=== PATIENT | female | born 1955 | race Caucasian/White ===

== ENCOUNTER 2022-06-24 11:22 | Emergency (ER) | payer SELFPAY ==
[2022-06-24 12:17] VITALS: BP 195/99; PULSE 81; RESP 16; TEMP 36.6; O2SAT 98; BMI 29.9
--- NOTE | 2022-06-24 12:21 | ED_ITS ---
HPI - General Adult General Chief complaint: Extremity Injury, Lower <EZIO Sawant Last Filed: 06/30/22 11:24> Stated complaint: L knee pain <EZIO Sawant Last Filed: 06/30/22 11:24> Time Seen by Provider: 06/24/22 13:33 <EZIO Sawant Last Filed: 06/30/22 11:24> Source: patient <EZIO Horne Last Filed: 06/24/22 17:56> Mode of arrival: ambulatory <EZIO Horne Last Filed: 06/24/22 17:56> Limitations: no limitations <EZIO Horne Last Filed: 06/24/22 17:56> History of Present Illness HPI narrative: 67 yo female with history of HTN and DM presents to the ER for evaluation of a painful and itchy rash to her left leg that started almost a week ago. She reports about 2 months ago she fell and she has had chronic pain in her back and left leg since. She reports new onset of a rash on her left leg that started around her low back and buttock as well as her upper left leg. It is painful and itchy. She denies any fevers, chills, N/V/D or abdominal pain. No rash on any other part of the body. She arrives to the ER hypertensive. She states she did not take her BP meds today, does not know their names. No chest pain, vision changes or headache. <EZIO Horne Last Filed: 06/24/22 17:56> MD complaint: rash, left leg pain <EZIO Horne Last Filed: 06/24/22 17:56> Onset (ago): day(s) <EZIO Horne Last Filed: 06/24/22 17:56> Location: left and lower extremity <EZIO Horne Last Filed: 06/24/22 17:56> Radiation: back <EZIO Horne Last Filed: 06/24/22 17:56> Severity: moderate <EZIO Horne Last Filed: 06/24/22 17:56> Quality: aching and other (itchy) <EZIO Horne Last Filed: 06/24/22 17:56> Pain Consistency: constant <EZIO Horne Last Filed: 06/24/22 17:56> Exacerbating factors: none <EZIO Horne Last Filed: 06/24/22 17:56> Associated symptoms: denies other symptoms <EZIO Horne - Last Filed: 06/24/22 17:56> Treatments prior to arrival: none <EZIO Horne Last Filed: 06/24/22 17:56> Related Data Home medications: Previous Rx's Medication Instructions Recorded amlodipine 10 mg tablet (Norvasc) 10 mg PO DAILY #30 tabs 06/24/22 valacyclovir 1 gram tablet 1,000 mg PO Q8H #20 tabs 06/24/22 <EZIO Sawant Last Filed: 06/30/22 11:24> Allergies/adverse reactions: Allergies Allergy/AdvReac Type Severity Reaction Status Date / Time aspirin [ASPIRIN] Allergy Severe RASH,SWELLI Unverified 02/09/20 18:07 NG captopril Allergy Unknown Verified 07/28/13 00:00 lisinopril Allergy Unknown Verified 07/28/13 00:00 hydromorphone [From DILAUDID] AdvReac Severe AGITATION Unverified 02/09/20 18:07 DAISY inhibitors Allergy Unknown Uncoded 10/29/15 00:00 <EZIO Sawant Last Filed: 06/30/22 11:24> Review of Systems Review of Systems: Yes all other systems are reviewed and are negative <EZIO Horne Last Filed: 06/24/22 17:56> [facility] Social History Social History: Social History Advance Directives: No Advance Directives Information Provided: Yes <EZIO Sawant Last Filed: 06/30/22 11:24> Physical Exam ED Vital Signs: Vital Signs - 24 hr 06/24/22 12:17 06/24/22 13:38 06/24/22 15:07 Temperature 98 F 98.4 F 98.6 F Pulse Rate 81 76 72 Respiratory Rate 16 18 16 Blood Pressure 195/99 H 194/95 H 185/86 H Pulse Oximetry 98 99 99 Oxygen Delivery Method Room Air Room Air Room Air BMI result Body Mass Index 29.9 <EZIO Sawant - Last Filed: 06/30/22 11:24> Vital Signs - 24 hr 06/24/22 12:17 06/24/22 13:38 06/24/22 15:07 Temperature 98 F 98.4 F 98.6 F Pulse Rate 81 76 72 Respiratory Rate 16 18 16 Blood Pressure 195/99 H 194/95 H 185/86 H Pulse Oximetry 98 99 99 Oxygen Delivery Method Room Air Room Air Room Air BMI result Body Mass Index 29.9 <EZIO Horne - Last Filed: 06/24/22 17:56> Appearance: Alert. Oriented X3. No acute distress. HEENT: normal inspection CVS: Normal heart rate and rhythm. Pulses normal. Respiratory: No respiratory distress. Lungs CTAB Skin: Skin warm and dry. Normal skin color. Normal skin turgor. . Extremities: left anterior leg with a vesicular, blister-like rash scattered all along the leg, no surrounding erythema or warmth. normal inspection of the RLE. Neuro: Oriented X 3. No motor deficit. No sensory deficit. <EZIO Horne - Last Filed: 06/24/22 17:56> Course Course Course Narrative: RME: patient presens for left thigh and left lower back buttock pain. Patient pants was pulled down and is positive for shingles on anterior left thigh and small amount on lower aspects of left buttock. patient hypertensive and states she did not take her meds. Due to elevated blood pressure patient will wait and be seen in [facility] to for improvement of blood pressure. <EZIO Sawant - Last Filed: 06/30/22 11:24> Reevaluation(s) Reevaluation #1: rash c/w shingles. given 1st dose of valacyclovir. also given dose of norvasc for BP. she is asymptomatic and has meds at home, unknown the names. she does not know the name of the town she used to live with in [place]. Just moved to the area and does not have a PCP. <EZIO Horne - Last Filed: 06/24/22 17:56> Reevaluation #2: BP improved. Remains symptomatic. Will d/c with norvasc and valacyclovir. She is due to follow with [facility] for further management of her DM and HTN. <EZIO Horne - Last Filed: 06/24/22 17:56> Medications Administered Discontinued Medications Generic Name Dose Route Start Last Admin Trade Name Freq PRN Reason Stop Dose Admin Acetaminophen 975 mg 06/24/22 14:05 06/24/22 14:10 Acetaminophen 325 Mg Tablet PO 06/24/22 14:06 975 mg ONCE ONE Administration Amlodipine Besylate 10 mg 06/24/22 14:05 06/24/22 14:11 Amlodipine Besylate 10 Mg Tablet PO 06/24/22 14:06 10 mg ONCE ONE Administration Protocol Valacyclovir HCl 1,000 mg 06/24/22 14:02 06/24/22 14:11 Valacyclovir Hcl 1,000 Mg Tablet PO 06/24/22 14:03 1,000 mg ONCE ONE Administration <EZIO Sawant - Last Filed: 06/30/22 11:24> Medications Administered Discontinued Medications Generic Name Dose Route Start Last Admin Trade Name Freq PRN Reason Stop Dose Admin Acetaminophen 975 mg 06/24/22 14:05 06/24/22 14:10 Acetaminophen 325 Mg Tablet PO 06/24/22 14:06 975 mg ONCE ONE Administration Amlodipine Besylate 10 mg 06/24/22 14:05 06/24/22 14:11 Amlodipine Besylate 10 Mg Tablet PO 06/24/22 14:06 10 mg ONCE ONE Administration Protocol Valacyclovir HCl 1,000 mg 06/24/22 14:02 06/24/22 14:11 Valacyclovir Hcl 1,000 Mg Tablet PO 06/24/22 14:03 1,000 mg ONCE ONE Administration <EZIO Horne - Last Filed: 06/24/22 17:56> Medical Decision Making Differential Diagnosis Differential Diagnoses: The differential diagnosis associated with the presentation includes <EZIO Horne - Last Filed: 06/24/22 17:56> shingles, dermatitis, allergic reaction, bullous pemphigoid, drug eruption, rheumatologic rash <EZIO Horne - Last Filed: 06/24/22 17:56> Prescription Management I considered prescription management with: Antiviral <EZIO Horne - Last Filed: 06/24/22 17:56> Discharge Plan Discharge Clinical Impression: Shingles, Uncontrolled hypertension <EZIO Sawant - Last Filed: 06/30/22 11:24> Patient Disposition: Home, Self-Care <EZIO Sawant Last Filed: 06/30/22 11:24> Instructions: Shingles (ED), Chronic Hypertension (ED) <EZIO Sawant - Last Filed: 06/30/22 11:24> Additional Instructions: Take the prescribed antiviral medication for your rash. Complete the entire course. She the prescribed amlodipine for her blood pressure. Recommend following up with PCP for further evaluation of your blood pressure and medication refills. If you develop new or worsening symptoms call 911 or come back to the ER for further evaluation. Yessica el medicamento antiviral recetado para el sarpullido. Completa todo el curso. Le recetaron amlodipina para cade presi?n arterial. Recomendar un seguimiento con PCP para alisson evaluaci?n adicional de cade presi?n arterial y recargas de medicamentos. Si desarrolla s?ntomas nuevos o que empeoran, llame al 911 o regrese a la emerald de emergencias para alisson evaluaci?n adicional. <EZIO Sawant - Last Filed: 06/30/22 11:24> Prescriptions: New valacyclovir 1 gram tablet 1,000 mg PO Q8H Qty: 20 0RF amlodipine [Norvasc] 10 mg tablet 10 mg PO DAILY Qty: 30 0RF <EZIO Sawant - Last Filed: 06/30/22 11:24> Interventions: ED Discharge Assessment Last Done: 06/24/22 15:29 <EZIO Sawant Last Filed: 06/30/22 11:24> Discharge Date/Time: 06/24/22 15:29 <EZIO Sawant - Last Filed: 06/30/22 11:24> Print Language: Serbian <EZIO Sawant Last Filed: 06/30/22 11:24>
[2022-06-24 13:38] VITALS: BP 194/95; PULSE 76; RESP 18; TEMP 36.9; O2SAT 99
[2022-06-24] MEDS: Acetaminophen 325 MG TABLET 975 MG PO (14:10)
[2022-06-24] MEDS: amLODIPine Besylate 10 MG TABLET PO (14:11)
[2022-06-24] MEDS: valACYclovir HCL 1,000 MG TABLET 1000 MG PO (14:11)
[2022-06-24 15:07] VITALS: BP 185/86; PULSE 72; RESP 16; TEMP 37; O2SAT 99
== END 2022-06-24 15:29 | disposition home or self-care (01) ==
PROVIDERS: Emergency Provider Emergency Medicine
DX: B02.9 Zoster without complications (principal); I10 Essential (primary) hypertension; E11.9 Type 2 diabetes mellitus without complications; Z79.899 Other long term (current) drug therapy
CPT/HCPCS: 99283

== ENCOUNTER 2022-07-12 11:13 | Emergency (ER) | payer MEDICARE, MEDICAID, SELFPAY ==
[2022-07-12 11:19] VITALS: BP 148/78; PULSE 82; RESP 18; TEMP 36.9; O2SAT 99; BMI 34.5
--- NOTE | 2022-07-12 11:23 | ED_ITS ---
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 Patient was on June 23 for she was diagnosed with shingles over her left thigh. She was started on Valtrex. She did complete the medication but reports continued pain in the area. She has tried using icy Hot but no other additional pain medications. Patient recently moved here from [place] and does not have a primary care doctor Related Data Previous Rx's Medication Instructions Recorded amlodipine 10 mg tablet (Norvasc) 10 mg PO DAILY #30 tabs 06/24/22 valacyclovir 1 gram tablet 1,000 mg PO Q8H #20 tabs 06/24/22 gabapentin 300 mg capsule 300 mg PO BID PRN pain #20 caps 07/12/22 Allergies Allergy/AdvReac Type Severity Reaction Status Date / Time aspirin [ASPIRIN] Allergy Severe RASH,SWELLI Unverified 02/09/20 18:07 NG captopril Allergy Unknown Verified 07/28/13 00:00 lisinopril Allergy Unknown Verified 07/28/13 00:00 hydromorphone [From DILAUDID] AdvReac Severe AGITATION Unverified 02/09/20 18:07 DAISY inhibitors Allergy Unknown Uncoded 10/29/15 00:00 Review of Systems Review of Systems: Yes all other systems are reviewed and are negative Constitutional: Constitutional: Reports no additional constitutional complaints, Denies body ache(s), Denies chills, Denies fever(s), Denies headache(s) and Denies weakness Eyes: Eyes: Reports no additional eye complaints and Denies change in vision ENT: Reports system reviewed and no additional complaints, except as documented, Denies dizziness, Denies headache(s), Denies nasal congestion, Denies nasal discharge and Denies neck pain Cardiovascular: Cardiovascular: Reports no additional cardiovascular complaints, Denies chest pain, Denies leg edema and Denies dyspnea Respiratory: Respiratory: Reports no additional respiratory complaints, Denies cough and Denies dyspnea Gastrointestinal: Gastrointestinal: Reports no additional gastrointestinal complaints, Denies abdominal pain, Denies diarrhea, Denies nausea and Denies vomiting Genitourinary: Genitourinary: Reports no additional female genitourinary complaints and Denies urinary incontinence Musculoskeletal: Musculoskeletal: Reports no additional musculoskeletal complaints, Denies back pain, Denies arthralgias, Denies joint swelling, Denies neck pain, Denies numbness and Denies tingling Integumentary/Breasts: Skin/Breast: Reports system reviewed and no additional complaints, except as docu and Denies rash Neurologic: Reports system reviewed and no additional complaints, except as documented, Denies dizziness, Denies headache(s), Denies numbness, Denies tingling and Denies weakness [facility] Past Medical History Attestation statement: The following information was validated with the patient. Source: old records reviewed and nursing notes reviewed Physical Exam ED Vital Signs: Vital Signs - 24 hr 07/12/22 11:19 Temperature 98.5 F Pulse Rate 82 Respiratory Rate 18 Blood Pressure 148/78 H Pulse Oximetry 99 Oxygen Delivery Method Room Air BMI result Body Mass Index 34.5 Const General: cooperative, healthy appearing, comfortable and no acute distress Orientation/consciousness: patient oriented x3 Limitations: no limitations HENMT Head: Yes normal to inspection Ears: hearing grossly normal bilaterally Eyes General: appearance normal, both eyes and all related structures Pupils: Equal, round and reactive pupils present Neck Neck: Yes normal visual inspection Chest Chest palpation & inspection: normal inspection of the chest Resp Effort & Inspection: normal respiratory effort Cardio Peripheral pulses: Peripheral pulses 2+ throughout GI Inspection: Yes normal to inspection Back/Spine/Pelvis Thoracic/Lumbar Spine: thoracic and lumbar spine normal to inspection Skin Other: To the left anterior thigh there are healing lesions noted with no surrounding erythema, swelling or warmth. Neuro General: patient oriented x3 and moves all extremities Cranial nerves: Yes Equal, round and reactive pupils present Cognition (Neuro): normal cognition Gait exam (Neuro): Normal gait present Medical Decision Making Medical Decision Making MDM Narrative: 67-year-old female here with post herpetic pain after being diagnosed with shingles on June 24. Patient here complaining of continued pain low the rash seems to be healing. I explained her that this is quite normal in the shingles process. Will put her on gabapentin p.r.n. to help with the pain in the meantime. Visually there is no signs of superimposed infection over the si te. Recommend patient is selfish a primary care doctor in this area she does not currently have one. Differential Diagnosis Differential Diagnoses: The differential diagnosis associated with the presentation includes post herpetic pain associated with shingles, superimposed cellulitis Prescription Management I considered prescription management with: Pain Medication see discussion above Discharge Plan Discharge Clinical Impression: Shingles Patient Disposition: Home, Self-Care Instructions: Sophy (ED) Additional Instructions: Es normal tener dolor jayla muchas semanas despu?s de tener culebrilla. Shea erupci?n se est? curando normalmente. Debe establecer un m?dico de atenci?n primaria para controlar mejor el dolor de o?do y los problemas m?dicos cr?nicos. Prescriptions: New gabapentin 300 mg capsule 300 mg PO BID PRN (Reason: pain) Qty: 20 0RF No Action valacyclovir 1 gram tablet 1,000 mg PO Q8H Qty: 20 0RF amlodipine [Norvasc] 10 mg tablet 10 mg PO DAILY Qty: 30 0RF Referrals: Physician,Unknown J [Physician] - Print Language: Yakut
== END 2022-07-12 11:44 | disposition home or self-care (01) ==
LOC: HO.ED 11:43
PROVIDERS: Emergency Provider Emergency Medicine
DX: B02.9 Zoster without complications (principal); M79.652 Pain in left thigh
CPT/HCPCS: 99282; 99283

== ENCOUNTER 2022-11-29 18:18 | Inpatient (IN) | payer MEDICARE, MEDICAID, SELFPAY ==
[2022-11-29] VITALS (13 sets, daily range): BP systolic 132–200; BP diastolic 82–133; PULSE 67–92; RESP 15–26; TEMP 36.9–37.2; O2SAT 97–98; BMI 27.1; BMI 34.5
--- NOTE | 2022-11-29 18:59 | ED.FALL ---
HPI - Fall General Chief Complaint: Fall Stated Complaint: high blood pressure Time Seen by Provider: 11/29/22 18:47 Source: patient and EMS Mode of arrival: EMS History of Present Illness HPI Narrative: . History of hypertension was in shower trying to get up from the commode and fell at 18:00 per EMS there was no deficit. On arrival RN also noticed slight weakness on the left side but not very clear at 18:55 when examined notice patient definitely has left-sided hemiparesis with left facial droop and left hemineglect. Blood pressure on arrival was elevated to 184/133 with pulse rate of 92 Related Data Previous Rx's Medication Instructions Recorded amlodipine 10 mg tablet (Norvasc) 10 mg PO DAILY #30 tabs 06/24/22 valacyclovir 1 gram tablet 1,000 mg PO Q8H #20 tabs 06/24/22 gabapentin 300 mg capsule 300 mg PO BID PRN pain #20 caps 07/12/22 Allergies Allergy/AdvReac Type Severity Reaction Status Date / Time aspirin [ASPIRIN] Allergy Severe RASH,SWELLI Unverified 02/09/20 18:07 NG captopril Allergy Unknown Verified 07/28/13 00:00 lisinopril Allergy Unknown Verified 07/28/13 00:00 hydromorphone [From DILAUDID] AdvReac Severe AGITATION Unverified 02/09/20 18:07 DAISY inhibitors Allergy Unknown Uncoded 10/29/15 00:00 Review of Systems Review of Systems: Yes Unobtainable due to mental status PMFSH Past Medical History Source: nursing notes reviewed Medical History (Updated 11/30/22 @ 01:44 by Zbigniew Wynn MD) Hypertension Social History Social History Household Members: Family Housing: Unknown / Unable to assess Unable to assess alcohol history related to: Unable to respond and Unknown Alcohol intake: never Patient Tobacco Use Status: Tobacco use Unknown Smoked in Last 30 Days: Yes Use of substances other than those prescribed or required for medical reasons: Unable to respond Substance Use Type: Unknown Currently Displaying Signs/Symptoms of Drug Intoxication Withdrawal: No Any prior treatment program specific to substance use: No Spiritual Healthcare Practices: UNKNOWN [facility] Healthcare Practices: UNKNOWN Cultural Healthcare Practices: UNKNOWN Advance Directives: No Advance Directives Information Provided: Yes Recently lost weight without trying: Unsure Nutrition Risks: On aspiration precautions Patient : No Physical Exam Vital Signs: Vital Signs: Last Vital Signs Temp 99 F 11/29/22 23:55 Pulse 76 11/30/22 01:30 Resp 15 11/30/22 01:30 BP 144/67 H 11/30/22 01:30 Pulse Ox 99 11/30/22 01:30 O2 Del Method Room Air 11/30/22 01:30 O2 Flow Rate 2 11/30/22 01:00 BMI result Body Mass Index 27.1 Appearance: Alert. Oriented X2-3 No acute distress. Uncomfortable Eyes: PERRLA, No Nystagmus ENT: Pharynx normal. Oral Mucosa moist Neck: Normal inspection. Neck supple. CVS: Normal heart rate and rhythm. Pulses normal. Respiratory: No respiratory distress. Equal air entry bilateral, no wheezing/rales/rhonchi Abdomen: Soft and nontender. Bowel sounds are present, no mass palpable, no CVA tenderness Skin: Skin warm and dry. Normal skin color. Normal skin turgor. Extremities: No lower extremity edema. No calf tenderness Neuro: Oriented X 2-3. Left hemiparesis left facial droop left hemineglect slurred speech strength left side -4/5 NIH Stroke Scale Internal: Initial- Upon Arrival Time: 18:55 Level of Consciousness: Alert Level of Consciousness Questions: Answers both questions correctly Level of Consciousness Commands: Performs both tasks correctly Best Gaze: Normal Visual: No visual loss Facial Palsy: Minor paralyis Motor Arm (Right): No drift Motor Arm (Left): Drift Motor Leg (Right): No drift Motor Leg (Left): Drift Limb Ataxia: Absent Sensory: Normal Best Language: No aphasia Dysarthia: Mild to moderate dysarthria Extinction and Inattention: No abnormality Score: 4 Medications Administered Discontinued Medications Generic Name Dose Route Start Last Admin Trade Name Freq PRN Reason Stop Dose Admin Alteplase, Recombinant 66.6 mg 11/29/22 19:14 11/29/22 19:41 Alteplase 100 Mg Vial 0.9 mg/kg (66.6 mg) 11/29/22 19:15 66.6 mg IV Administration ONCE ONE Iohexol 100 ml 11/29/22 19:41 11/29/22 19:42 Iohexol 350 Mg/Ml 100 Ml Infus..Btl IV 11/29/22 19:42 100 ml ONCE ONE Administration Labetalol HCl 20 mg 11/29/22 19:13 11/29/22 19:16 Labetalol Hcl 100 Mg/20 Ml Vial IVPUSH 11/29/22 19:14 20 mg ONCE ONE Administration Medical Decision Making Medical Decision Making [facility] Narrative: 1914 Patient with acute CVA likely happen around 1800 when she fell Motrin to get up from commode because of weakness of the left side. Blood pressure was elevated to 184/[address] scan of the head was negative for acute bleed or stroke case discussed with Dr. 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 11/29/22 19:47 11/29/22 23:37 Labs: Lab Results 11/29/22 11/29/22 11/29/22 Range/Units 19:47 19:47 19:47 WBC 9.7 (4.8-10.8) X10*3/uL RBC 4.27 (4.20-5.50) X10*6/uL Hgb 12.1 (12.0-16.0) g/dl Hct 37.7 (37.0-47.0) % MCV 88.3 (80.0-98.0) fL MCH 28.3 (27.0-33.0) pg MCHC 32.1 (31.0-35.0) g/dl RDW 12.5 (11.0-16.0) % Plt Count 232 (160-400) X10*3/uL MPV 11.4 (9.4-12.3) fL Immature Gran % (Auto) 0.3 (0.0-0.4) % Neut % (Auto) 73.7 H (45-73) % Lymph % (Auto) 19.8 L (20-40) % Camp % (Auto) 4.6 (2-11) % Eos % (Auto) 1.1 (0-4) % Baso % (Auto) 0.5 (0-2) % Lymph # (Auto) 1.9 (1.2-4.9) X10*3/uL Camp # (Auto) 0.4 (0.1-1.2) X10*3/uL Eos # (Auto) 0.1 (0.0-0.4) X10*3/uL Baso # (Auto) 0.1 (0.0-0.2) X10*3/uL Abs Immat Gran (auto) 0.03 (0.00-0.03) X10*3/uL Absolute Neuts (auto) 7.1 (2.0-8.3) x10*3/uL Absolute Nucleated RBC 0.000 (0.0-0.012) X10*3/uL Nucleated RBC % (auto) 0.0 (0.0-0.2) /100WBC PT 12.1 (10.0-13.1) SEC INR 1.1 (0.9-1.1) APTT 29.2 (26.0-36.4) SEC Sodium 135 (135-145) mmol/L Potassium 5.6 H (3.3-5.1) mmol/L Chloride 106 (96-108) mmol/L Carbon Dioxide 18 L (22-29) mmol/L Anion Gap 17 (12-20) BUN 53 H (9-16) mg/dL Creatinine 3.97 H (0.5-1.4) mg/dL Estim Creat Clear Calc 13.6 Estimated GFR 11 Random Glucose 338 H (60-115) mg/dL Calcium 9.9 (8.4-10.2) mg/dL Total Creatine Kinase 274 H (26-140) U/L Troponin I High Sens (<3.5-17.0) ng/L 11/29/22 Range/Units 19:47 WBC (4.8-10.8) X10*3/uL RBC (4.20-5.50) X10*6/uL Hgb (12.0-16.0) g/dl Hct (37.0-47.0) % MCV (80.0-98.0) fL MCH (27.0-33.0) pg MCHC (31.0-35.0) g/dl RDW (11.0-16.0) % Plt Count (160-400) X10*3/uL MPV (9.4-12.3) fL Immature Gran % (Auto) (0.0-0.4) % Neut % (Auto) (45-73) % Lymph % (Auto) (20-40) % Camp % (Auto) (2-11) % Eos % (Auto) (0-4) % Baso % (Auto) (0-2) % Lymph # (Auto) (1.2-4.9) X10*3/uL Camp # (Auto) (0.1-1.2) X10*3/uL Eos # (Auto) (0.0-0.4) X10*3/uL Baso # (Auto) (0.0-0.2) X10*3/uL Abs Immat Gran (auto) (0.00-0.03) X10*3/uL Absolute Neuts (auto) (2.0-8.3) x10*3/uL Absolute Nucleated RBC (0.0-0.012) X10*3/uL Nucleated RBC % (auto) (0.0-0.2) /100WBC PT (10.0-13.1) SEC INR (0.9-1.1) APTT (26.0-36.4) SEC Sodium (135-145) mmol/L Potassium (3.3-5.1) mmol/L Chloride (96-108) mmol/L Carbon Dioxide (22-29) mmol/L Anion Gap (12-20) BUN (9-16) mg/dL Creatinine (0.5-1.4) mg/dL Estim Creat Clear Calc Estimated GFR Random Glucose (60-115) mg/dL Calcium (8.4-10.2) mg/dL Total Creatine Kinase (26-140) U/L Troponin I High Sens 46.4 H (<3.5-17.0) ng/L Independent Interpretation I performed an independent interpretation of an: EKG Interpretation: Normal sinus rhythm heart rate [address] changes no acute ischemic Critical Care Time Critical Care Time Critical Care Time: Yes Total Critical Care Time: 91 Attestation: The patient was critically ill with a high probability of imminent or life threatening deterioration. I spent greater than 100 minutes of discontinuous time evaluating the patient,delivering critical care at the bedside, discussing and evaluating pertinent data with consultants. Critical care time does not include time spent performing separately billable procedures or teaching. Total time spent performing critical care was 91 minutes. Discharge Plan Discharge Clinical Impression: Acute cerebrovascular accident (CVA), Hypertensive urgency Patient Disposition: Admitted As Inpatient Interventions: Admission Worksheet (ED) Last Done: 11/30/22 00:04
--- NOTE | 2022-11-29 20:18 | PC.NURSE ---
alert but confused. baseline mental status unknown. breathing easy/comfortably. moving RUE/RLE well, sensation intact. decrease sensation noted to LUE/LLE. follows commands well. skin color norm/warm/dry/intact.
--- NOTE | 2022-11-29 20:46 | PC.NURSE ---
sleeping comfortably, no distress. linens changed--aware of when she has to urinate. +PERRL (pupils). waiting for ICU bed.
--- NOTE | 2022-11-29 21:30 | PM.CCHP ---
History of Present Illness Date of Service: 11/29/22 Attending physician on admission: Patel Yu Chief Complaint: STROKE POST TpA HPI: 67 y.o female with hx of HTN, As per ER records, the patient's transfer via EMS after she had a fall in the shower after using the commode around 1800, patients sister called the EMS.? Upon arrival patient was noticed to have a slight weakness on the left side, at 18:55 the patient was examined by the MD provider and noticed that the patient had left-sided hemiparesis and left-sided droop, left hemineglect.? At the time he your blood pressure was 184/133 with a heart rate of 92.? At 19:15 the patient was diagnosed with acute CVA she did receive labetalol for her blood pressure.? CT scan of the head showed no acute bleed or evidence of a stroke, neurology consultation with Dr. Dykes had been done and it was advised to administer tPA.? She subsequently had a CT angiogram of the head and neck which showed: ? *Occlusion of the right internal carotid artery. Intraluminal opacification is absent within the right internal carotid artery from the proximal segment of the cervical right internal carotid artery to the origin of the right ophthalmic artery. Findings are suspicious for either distal occlusion of the right internal carotid artery or dissection. A discrete dissection flap is not visualized. These findings are age indeterminate. The right ICA reconstitutes at the level of the right ophthalmic artery. The middle cerebral arteries are patent bilaterally. No gross territorial perfusion defects of the brain and qualitative assessment of angiographic IV contrast opacification of the brain (qualitative static perfusion imaging). *Mild (less than 50%) bilateral carotid bulb and internal carotid artery origin stenoses secondary to eccentric nonulcerative calcific atherosclerotic plaque. *Common origin of the brachiocephalic and left common carotid arteries. ? Her laboratory workup was overall unremarkable except her potassium was 5.6, creatinine of 3.97 but the baseline is unknown; No white count or evidence of anemia,, random glucose 338.? Troponin 46.4 and total CK 274 with albumin 3.3. ? During my evaluation in the emergency room, patient was not responsive, significantly somnolent and only responded to sternal rub, unable to speak, unable to follow commands and it is clear that she has left-sided facial droop as well as left-sided flaccidity of the upper and lower extremities.? At this point patient is not following command, upon checking with the nurses they state that the patient is much different done when she was initially assessed, I discussed the case with ED physician again suggested a repeat head CT to rule out humeri G conversion post tPA.? Results are pending, patient was transferred to the ICU. ? ? ROS:? Unable to obtain ? Past Medical History:? As above ? Past Surgical History:? Unknown ? Family history:? Noncontributory ? Social History:? Lives at home with family, reportedly she is former smoker, no drugs or alcohol.? I talked to her sister OCTAVIO STRICKLAND ?her primary contact [phone], she does family in [place]. ? CODE STATUS: FULL CODE ? Allergies: ASA (rash); DAISY inhibitor; Dilaudid (agitation) ? Home Medications: See Med Rec ? PHYSICAL EXAM: VS: 164/89; 74; 20; 97% RA General:? Alert to sternal Rub, no acute distress.? Somnolent, no able to carry a conversation or follow commands. Skin:? Left-sided facial droop.? Intact, no lesions, edema, erythema, clubbing or cyanosis.? No ulcers. HEENT:? Head is normocephalic, atraumatic, pupils are minimally reactive to light at 3 mm bilaterally.? There is no icterus.? Unable to assess extraocular movements.? Clearly has a left-sided gaston-neglect. Mouth is dry. neck appears supple without lymphadenopathy. I could not listen for carotid bruits for the patient is not able to hold her breath. Cardiac:? Clear S1-S2, no murmurs rubs or gallops. Pulmonary:? Clear to auscultation, no wheezes, rales or rhonchi. Abdomen:? Protuberant, positive bowel sounds in all 4 quadrants.? Soft Musculoskeletal:? Patient is moving the right upper and right lower extremity on her own went sternal rubbed, unable to follow other commands therefore I cannot assess her strength throughout her extremities.? There is no asymmetry of the legs and no edema noted. Neurologic:? As above, obtunded, aphasic, unable to follow commands.? Noticeable left-sided facial droop and left upper and lower extremity weakness unable to assess with resistance or movement upon command.? Left gaston-neglect. Vascular:? 2+ pulses upper and lower extremities distally. ? SIGNIFICANT LABORATORY DATA:? As above White blood cells 9.7, hemoglobin 12.1, hematocrit 27.7, platelets 232.? Sodium 136, potassium 5.2 from 5.6) chloride 107, carbon dioxide 20, anion gap 14, BUN 50, creatinine 3.72 (from 3.97) her baseline is unknown.? Albumin 3.3. ? REVIEW OF IMAGES: as above ? EKG REVIEW: ?To my view this sinus rhythm 64 beats per minute.? There is no ST elevations, no ST depressions.? QTC 408.? No comparison. ? ASSESSMENT : 1. Acute right-sided ischemic stroke with left-sided deficits status post tPA 2. Right internal carotid artery occlusion 3. Left-sided hemiparesis 4. Left-sided hemineglect 5. Improved hyperkalemia 6. Improved hypertension 7. Hypoalbuminemia 8. Expressive aphasia 9. Hyperglycemia rule out chronic untreated diabetes versus new onset 10. Acute versus chronic kidney injury likely volume depleted ? PLAN OF CARE: Patient will be admitted to the ICU, vital signs and neuro checks per protocol, monitor eyes and nose, allow liberalized blood pressure, lipid profile in the morning. Formal speech, swallow, PT and OT evaluation in the morning.? Echocardiogram ordered, given the post tPA head CT findings a repeat head CT will be done early in the morning. Given the carotid findings the patient may need vascular surgery consult.? MRI ordered for tomorrow evening. ?At this point I do not think it is safe to try to evaluate her swallowing abilities nor do I think is appropriate to give her Lipitor.? Check labs in the morning hemoglobin A1c, in the meantime insulin sliding scale.? Gentle half NS. ? POST tpA repeat HEAD CT IMPRESSION: Small linear focus of hyperdensity in the right occipital lobe is favored to correspond to a site of vascular enhancement due to the residual contrast material throughout the intracranial vasculature. Focal subarachnoid hemorrhage is on the differential, though felt to be less likely. Consider follow-up CT in another 6 to 12 hours. Otherwise, no acute intracranial abnormalities. ? Will repeat Head CT at 9am ? GI PROPHYLAXIS: IV PPI DVT PROPHYLAXIS: Pneumatic Stocks only ? Critical care time used for critical evaluation of this patient, diagnosis, treatment and coordination of care, review her records and documentation TOTAL CRITICAL CARE TIME???90 MIN . discussion and coordination with consultants, completely separate from any procedures performed. Patient's care was discussed in detail with Dr. Yu.? He is aware of all the above as well as the plan of care for this patient. [facility] Past Medical History Medical History (Updated 11/30/22 @ 10:12 by Patel Yu MD) Hypertension Social History Social History Household Members: Family Housing: Unknown / Unable to assess Unable to assess alcohol history related to: Unable to respond and Unknown Alcohol intake: never Patient Tobacco Use Status: Tobacco use Unknown Smoked in Last 30 Days: Yes Use of substances other than those prescribed or required for medical reasons: Unable to respond Substance Use Type: Unknown Currently Displaying Signs/Symptoms of Drug Intoxication Withdrawal: No Any prior treatment program specific to substance use: No Spiritual Healthcare Practices: UNKNOWN Voodoo Healthcare Practices: UNKNOWN Cultural Healthcare Practices: UNKNOWN Advance Directives: No Advance Directives Information Provided: Yes Recently lost weight without trying: Unsure Nutrition Risks: On aspiration precautions Patient : No Meds Allergies Allergy/AdvReac Type Severity Reaction Status Date / Time aspirin [ASPIRIN] Allergy Severe RASH,SWELLI Unverified 02/09/20 18:07 NG captopril Allergy Unknown Verified 07/28/13 00:00 lisinopril Allergy Unknown Verified 07/28/13 00:00 hydromorphone [From DILAUDID] AdvReac Severe AGITATION Unverified 02/09/20 18:07 DAISY inhibitors Allergy Unknown Uncoded 10/29/15 00:00 Home Medications Medication Instructions Recorded Confirmed Last Taken Type Unobtainable 11/30/22 11/30/22 Unknown History Physical Exam Vital Signs: Vital Signs: Last Vital Signs Temp 98.5 F 11/29/22 18:36 Pulse 88 11/29/22 21:20 Resp 20 11/29/22 21:20 BP 160/90 H 11/29/22 21:20 Pulse Ox 98 11/29/22 21:20 O2 Del Method Room Air 11/29/22 21:20 BMI result Body Mass Index 27.1 Results Labs 11/29/22 19:47 11/29/22 19:47 Labs: Laboratory Results - last 24 hr 11/29/22 11/29/22 11/29/22 19:47 19:47 19:47 MCV 88.3 MCH 28.3 MCHC 32.1 RDW 12.5 Plt Count 232 MPV 11.4 Immature Gran % (Auto) 0.3 Neut % (Auto) 73.7 H Lymph % (Auto) 19.8 L [place] % (Auto) 4.6 Eos % (Auto) 1.1 Baso % (Auto) 0.5 Lymph # (Auto) 1.9 Wilson # (Auto) 0.4 Eos # (Auto) 0.1 Baso # (Auto) 0.1 Abs Immat Gran (auto) 0.03 Absolute Neuts (auto) 7.1 Absolute Nucleated RBC 0.000 Nucleated RBC % (auto) 0.0 PT 12.1 INR 1.1 APTT 29.2 Anion Gap 17 Estim Creat Clear Calc 13.6 Estimated GFR 11 Random Glucose 338 H Calcium 9.9 Total Creatine Kinase 274 H Troponin I High Sens 11/29/22 19:47 MCV MCH MCHC RDW Plt Count MPV Immature Gran % (Auto) Neut % (Auto) Lymph % (Auto) Wilson % (Auto) Eos % (Auto) Baso % (Auto) Lymph # (Auto) Wilson # (Auto) Eos # (Auto) Baso # (Auto) Abs Immat Gran (auto) Absolute Neuts (auto) Absolute Nucleated RBC Nucleated RBC % (auto) PT INR APTT Anion Gap Estim Creat Clear Calc Estimated GFR Random Glucose Calcium Total Creatine Kinase Troponin I High Sens 46.4 H Imaging Radiologist's Impressions: Impressions Head CT 11/29/22 19:10 IMPRESSION: There is subtle asymmetric relative hypodensity involving the inferior right occipital lobe, which potentially be artifactual although a subtle left MOVIE EDITOR territory infarct could have this appearance. Recommend relation with clinical symptoms and consider further characterization with MR brain. The findings and recommendations were discussed with Zbigniew Wynn MD by telephone at 11/29/2022 7:21 PM and it was ascertained that the content and urgency of the report was understood at the time of direct communication. Head/Neck CTA 11/29/22 19:35 IMPRESSION: IV contrast-enhanced CT the head: *Focal cortical infarcts of the right precentral and postcentral gyri (right cerebral primary motor cortex and primary sensory motor cortex). These findings are new compared with CT the head 03/07/2016 but otherwise age-indeterminate. *No acute intracranial hemorrhage. *No evidence of occipital lobe infarcts. CT angiography head and neck: *Occlusion of the right internal carotid artery. Intraluminal opacification is absent within the right internal carotid artery from the proximal segment of the cervical right internal carotid artery to the origin of the right ophthalmic artery. Findings are suspicious for either distal occlusion of the right internal carotid artery or dissection. A discrete dissection flap is not visualized. These findings are age indeterminate. The right ICA reconstitutes at the level of the right ophthalmic artery. The middle cerebral arteries are patent bilaterally. No gross territorial perfusion defects of the brain and qualitative assessment of angiographic IV contrast opacification of the brain (qualitative static perfusion imaging). *Mild (less than 50%) bilateral carotid bulb and internal carotid artery origin stenoses secondary to eccentric nonulcerative calcific atherosclerotic plaque. *Common origin of the brachiocephalic and left common carotid arteries. This critical result was discussed with Zbigniew Wynn MD by telephone at 11/29/2022 8:07 PM and it was ascertained that the content and urgency of the report was understood at the time of direct communication. Assessment and Plan Time Spent With Patient Time: Total time managing care of this patient today ____ minutes.
--- NOTE | 2022-11-29 21:38 | PC.NURSE ---
TPa bolus given at 1940; continuous infusion started at 2029. completed at 2129.
--- NOTE | 2022-11-29 23:29 | MHC.EDTECH ---
THIS PCT ASSUMED CARE OF PATIENT AT 2300 .
[2022-11-30] VITALS (30 sets, daily range): BP systolic 111–187; BP diastolic 43–85; PULSE 47–84; RESP 12–17; TEMP 32–37; O2SAT 97–100; BMI 25.3; BMI 25.6; BMI 26.3
--- NOTE | 2022-11-30 00:05 | PC.NURSE ---
receiving RN made aware of critical Po2 and was immediately placed on oxygen.
--- NOTE | 2022-11-30 03:11 | PC.NURSE ---
PT TO ICU AT 2355 FROM ED. PT MOSTLY SLEEPING BUT AROUSABLE TO NAME. DOES NOT FOLLOW COMMANDS. TURNS HEAD TO RIGHT SIDE WHEN NAME IS CALLED. APHASIC. LEFT FACIAL DROOP NOTED. FLACCID ON THE LEFT. S/P TPA AT 1941 IN ER. PT INCONTINENT OF PINK URINE. POPPY CARE GIVEN. PUREWICK PLACED. EZIO TAM AWARE OF PINK URINE. BP 162/82 ON ARRIVAL TO UNIT AND THEN SBP DOWN TO 130'S. IV OF 1/5 NS INFUSING AT 80 ML/HR. POC ON ARRIVAL TO UNIT 260. INSULIN GIVEN PER SLIDING SCALE. MONITOR SHOWS NSR, 80'S, OCC TO MICHEL PAC'S NOTED. NO ACUTE RESP DISTRESS. HOB UP 45 DEGREES. PO2 30'S PER ABG'S AND O2 APPLIED AT 2L BUT LATER D/C'D LAB DRAW DETERMINED TO MOST PROBABLY BE VENOUS. O2 SAT ON ROOM AIR 97-98%. EZIO TAM CALLED NEXT OF KIN, PT'S SISTER, AND UPDATE GIVEN TO HER. LATER RECEIVED A CALL FROM PT'S DAUGHTER TALYA SHEA, WHO STATED PT'S SISTER CALLED HER AND INQUIRING HOW PT WAS DOING. UPDATE GIVEN TO HER.
[2022-11-30 05:21] LABS: Venous Blood Gas Refer to POC result
[2022-11-30 05:45] LABS: Alanine Aminotransferase 9 U/L (0-31); Albumin Level 3.2 g/dL (3.5-5.0); Alkaline Phosphatase 93 U/L (39-117); Anion Gap 15 (12-20); Aspartate Amino Transferase 16 U/L (5-31); Bilirubin Total 0.3 mg/dL (0.0-1.0); Blood Urea Nitrogen 50 mg/dL (9-16); Calcium 9.7 mg/dL (8.4-10.2); Carbon Dioxide 19 mmol/L (22-29); Chloride 108 mmol/L (96-108); Cholesterol 195 mg/dL; Creatinine Clr Calc Pharmacy 14.4; Estimated Glomerular Filt Rate 12; Glucose Random 170 mg/dL (60-115); HDL Cholesterol 60 mg/dL; LDL Cholesterol Calculated 120 mg/dl; Potassium 4.9 mmol/L (3.3-5.1); Sodium 137 mmol/L (135-145); Total Protein 7.2 g/dL (6.5-8.0); Triglycerides 78 mg/dL
--- NOTE | 2022-11-30 06:37 | PC.NURSE ---
MONITOR WAS NSR 70'S-80'S WITH FREQ PAC'S. THEN PT STARTED HAVING SHORT RUNS OF BRADYCARDIA LOW 42 THAT WERE BECOMING MORE FREQUENT. ELIJAH TAM NOTIFIED. NO FURTHER ORDERS AT THIS TIME. CONTINUE TO MONITOR. BP STABLE. PACER PADS AT BEDSIDE. NO BLEEDING POST TPA EXCEPT FOR PINK URINE WHEN PT WAS INCONTINENT AT 0200. NO OTHER BLEEDING NOTED.
--- NOTE | 2022-11-30 07:42 | PHA.MEDREC ---
Pharmacy Consult ? Medication Reconciliation Pharmacy has completed the medication reconciliation. called patient's sister and had no information regarding her medications. Claim history from 07/15 for a 10 day supply of gabapentin and 06/24 for amplodipine
[2022-11-30 07:44] LABS: Estimated Average Glucose 341 mg/dL; Hemoglobin A1c % 13.5 %
--- NOTE | 2022-11-30 07:46 | PHA.MEDREC ---
Pharmacy Consult ? Medication Reconciliation Pharmacy has completed the medication reconciliation. called patient's sister and had no information regarding her medications. Claim history from 07/15 for a 10 day supply of gabapentin and 06/24 for a 30 day supply of amlodipine.
--- NOTE | 2022-11-30 10:07 | PM.CCPN ---
Subjective Subjective Date of Service: 11/30/22 Interval History: 67-year-old lady with underlying history of hypertension admitted with a mechanical fall and alteration of mental status. On ER evaluation patient with left-sided weakness and lethargy. Initial CT chest negative for hemorrhage. Patient administered tPA and admitted to intensive care unit. Patient with worsening symptoms overnight with CT chest demonstrating possible subarachnoid hemorrhage versus residual contrast enhancement. Overnight events as above. Critical Care Time (minutes): 90 Physical Exam Vital Signs: Vital Signs: Last Vital Signs Temp 98.5 F 11/30/22 08:00 Pulse 62 11/30/22 08:00 Resp 13 11/30/22 08:00 BP 135/78 11/30/22 08:00 Pulse Ox 99 11/30/22 08:00 O2 Del Method Room Air 11/30/22 08:00 O2 Flow Rate 2 11/30/22 01:00 BMI result Body Mass Index 26.3 Const: General: lethargic ( arousable to noxious stimuli) Orientation/consciousness: lethargic ( arousable to noxious stimuli) Eyes: Sclerae: sclerae normal EOM: EOMs intact bilaterally Neck: Neck: Yes no lymphadenopathy, Yes trachea midline and Yes supple Resp: Effort & Inspection: normal respiratory effort and no respiratory distress Auscultation: clear to auscultation bilaterally Cardio: Rate: regular rate Rhythm: regular rhythm Heart sounds: no gallops, no murmurs and no rubs GI: Palpation (GI): Soft to palpation and Other GI palpation findings present ( Nontender) Auscultation: normal bowel sounds Neuro: Other: left upper extremity paresis, aphasia Extrem: General: Yes no pedal edema, No clubbing and No cyanosis Objective Data Labs 11/29/22 19:47 11/30/22 05:12 Labs: Laboratory Results - last 24 hr 11/29/22 11/29/22 11/29/22 19:47 19:47 19:47 WBC 9.7 RBC 4.27 Hgb 12.1 Hct 37.7 MCV 88.3 MCH 28.3 MCHC 32.1 RDW 12.5 Plt Count 232 MPV 11.4 Immature Gran % (Auto) 0.3 Neut % (Auto) 73.7 H Lymph % (Auto) 19.8 L [place] % (Auto) 4.6 Eos % (Auto) 1.1 Baso % (Auto) 0.5 Lymph # (Auto) 1.9 [place] # (Auto) 0.4 Eos # (Auto) 0.1 Baso # (Auto) 0.1 Abs Immat Gran (auto) 0.03 Absolute Neuts (auto) 7.1 Absolute Nucleated RBC 0.000 Nucleated RBC % (auto) 0.0 PT 12.1 INR 1.1 APTT 29.2 O2 Saturation ABG pH at Pt Temp ABG pCO2 at Pt Temp ABG pO2 at Pt Temp ABG HCO3 ABG Base Excess (Actual) VBG pH VBG pCO2 VBG pO2 VBG HCO3 VBG O2 Saturation VBG Base Excess Sodium 135 Potassium 5.6 H Chloride 106 Carbon Dioxide 18 L Anion Gap 17 BUN 53 H Creatinine 3.97 H Estim Creat Clear Calc 13.6 Estimated GFR 11 POC Glucose Random Glucose 338 H Estimat Average Glucose Hemoglobin A1c % Calcium 9.9 Total Bilirubin AST ALT Alkaline Phosphatase Total Creatine Kinase 274 H Troponin I High Sens Total Protein Albumin Triglycerides Cholesterol LDL Cholesterol, Calc HDL Cholesterol 11/29/22 11/29/22 11/29/22 19:47 23:24 23:34 WBC RBC Hgb Hct MCV MCH MCHC RDW Plt Count MPV Immature Gran % (Auto) Neut % (Auto) Lymph % (Auto) [place] % (Auto) Eos % (Auto) Baso % (Auto) Lymph # (Auto) [place] # (Auto) Eos # (Auto) Baso # (Auto) Abs Immat Gran (auto) Absolute Neuts (auto) Absolute Nucleated RBC Nucleated RBC % (auto) PT INR APTT O2 Saturation 54.0 ABG pH at Pt Temp 7.35 ABG pCO2 at Pt Temp 41 ABG pO2 at Pt Temp 36 L* ABG HCO3 23 ABG Base Excess (Actual) -2.0 VBG pH VBG pCO2 VBG pO2 VBG HCO3 VBG O2 Saturation VBG Base Excess Sodium Potassium Chloride Carbon Dioxide Anion Gap BUN Creatinine Estim Creat Clear Calc Estimated GFR POC Glucose 219 H Random Glucose Estimat Average Glucose Hemoglobin A1c % Calcium Total Bilirubin AST ALT Alkaline Phosphatase Total Creatine Kinase Troponin I High Sens 46.4 H Total Protein Albumin Triglycerides Cholesterol LDL Cholesterol, Calc HDL Cholesterol 11/29/22 11/30/22 11/30/22 23:37 00:31 05:08 WBC RBC Hgb Hct MCV MCH MCHC RDW Plt Count MPV Immature Gran % (Auto) Neut % (Auto) Lymph % (Auto) [place] % (Auto) Eos % (Auto) Baso % (Auto) Lymph # (Auto) [place] # (Auto) Eos # (Auto) Baso # (Auto) Abs Immat Gran (auto) Absolute Neuts (auto) Absolute Nucleated RBC Nucleated RBC % (auto) PT INR APTT O2 Saturation ABG pH at Pt Temp ABG pCO2 at Pt Temp ABG pO2 at Pt Temp ABG HCO3 ABG Base Excess (Actual) VBG pH 7.31 L VBG pCO2 41 VBG pO2 43 VBG HCO3 21 L VBG O2 Saturation 69.0 VBG Base Excess -4.5 Sodium 136 Potassium 5.2 H Chloride 107 Carbon Dioxide 20 L Anion Gap 14 BUN 50 H Creatinine 3.72 H Estim Creat Clear Calc 16.4 Estimated GFR 12 POC Glucose 260 H Random Glucose 247 H Estimat Average Glucose Hemoglobin A1c % Calcium 9.6 Total Bilirubin 0.5 AST 15 ALT 10 Alkaline Phosphatase 101 Total Creatine Kinase Troponin I High Sens Total Protein 7.2 Albumin 3.3 L Triglycerides Cholesterol LDL Cholesterol, Calc HDL Cholesterol 11/30/22 11/30/22 11/30/22 05:12 05:12 07:20 WBC RBC Hgb Hct MCV MCH MCHC RDW Plt Count MPV Immature Gran % (Auto) Neut % (Auto) Lymph % (Auto) [place] % (Auto) Eos % (Auto) Baso % (Auto) Lymph # (Auto) [place] # (Auto) Eos # (Auto) Baso # (Auto) Abs Immat Gran (auto) Absolute Neuts (auto) Absolute Nucleated RBC Nucleated RBC % (auto) PT INR APTT O2 Saturation ABG pH at Pt Temp ABG pCO2 at Pt Temp ABG pO2 at Pt Temp ABG HCO3 ABG Base Excess (Actual) VBG pH VBG pCO2 VBG pO2 VBG HCO3 VBG O2 Saturation VBG Base Excess Sodium 137 Potassium 4.9 Chloride 108 Carbon Dioxide 19 L Anion Gap 15 BUN 50 H Creatinine 3.67 H Estim Creat Clear Calc 14.4 Estimated GFR 12 POC Glucose 86 Random Glucose 170 H Estimat Average Glucose 341 Hemoglobin A1c % 13.5 Calcium 9.7 Total Bilirubin 0.3 AST 16 ALT 9 Alkaline Phosphatase 93 Total Creatine Kinase Troponin I High Sens Total Protein 7.2 Albumin 3.2 L Triglycerides 78 Cholesterol 195 LDL Cholesterol, Calc 120 HDL Cholesterol 60 Progress Note: A&P Assessment and plan (1) Acute cerebrovascular accident (CVA): Status: Acute (2) Acute kidney injury: Status: Acute (3) Urinary retention: Status: Acute (4) Hypertensive urgency: Status: Acute Plan Assessment: 67-year-old lady admitted with acute CVA, now status post tPA, with residual left upper extremity paresis and aphasia Plan: Neuro: acute CVA status post tPA. Follow-up CT head for possible subarachnoid hemorrhage is pending. MRI to evaluate stroke size is pending. Neurology service care appreciated. Case discussed with [facility] neuro intervention team by me on 11/30/2022 at 11:30 - advised that, since patient had intracranial reconstitution of her right ICA neurointervention has not been and is not not warranted at this time, And that MRI should be obtained before discussion of possible neurosurgical intervention for suspected large right-sided stroke. Cardiac: No acute issues. Pulmonary: No acute issues. Renal: Acute renal failure, improving. Non oliguric. Urinary retention, status post Melendez placement. Continue to monitor renal indices and urine output. Endo: No acute issues. GI: No acute issues. ID: No acute issues Heme/Onc: No acute issues. Psych: No acute issues. Miscellaneous: No acute issues. Prophylaxis: pneumatic compression Diet: pending swallow evaluation Critical care time spent: 90 Quality Stroke Does the patient have a stroke diagnosis?: Yes Reason for No Anti-thrombotic by Day Two: Contraindicated VTE Prior VTE?: No VTE Risk Level:: Medical - low VTE Device Contraindication: Procedure Contraindicated VTE Drug Contraindication: Treatment Not Indicated
--- NOTE | 2022-11-30 10:44 | MHC.STROKE ---
Addendum entered by Madhavi Ambriz RN 11/30/22 19:17: 1742 I RECEIVED A TIGERTEXT FRO DR. CHAVES, AND HE HAS SPOKEN WITH [facility] REGARDING THIS CASE, SEE HIS NOTE, I RECOMMENDED THAT HE SPEAKS WITH DR. WALLACE AGAIN, WELL. 1844 DR. CHAVES REPORTED TO ME THAT HE IS REACHING OUT TO DR. WALLACE. AT [address] WALLACE AND CONFIRMED THE [facility] STROKE LINE NUMBER. AT [address] WALLACE AND CONFIRMED THAT THE IMAGES SHOULD BE AVAILABLE ON THE [facility] PACS, DR. WALLACE IS REACHING OUT TO [facility] STROKE SERVICE AGAIN TO REVIEW THIS CASE FOR TRANSFER. I AM AVAILABLE TO ASSIST. Addendum entered by Madhavi Ambriz RN 11/30/22 17:40: I FOLLOWED UP WITH YVES GIBBONS ON THE MRI RESULTS AND IF THESE RESULTS WERE REPORTED TO DR. WALLACE. I HAVE CONTACTED DR. CHAVES AND ASKED HIM TO SPEAK WITH DR. WALLACE. I HAVE ALSO COMMUNICATED THIS MESSAGE TO DR. WALLACE. I WILL CONTINUE TO FOLLOW. Addendum entered by Madhavi Ambriz RN 11/30/22 11:49: [address] WALLACE AND HE UPDATED ME ON THIS PATIENT. HE IS SPEAKING WITH DR. CHAVES AND IS RECOMMENDING TRANSFER TO [facility]TERTIARY FACILITY. SEE HIS NOTE. Original Note: 11/29/221811 EMS PRE-NOTIFIED, FALL, NO STROKE ALERT. ARRIVED AT [facility] 1818. SEE TRIAGE NOTES, SEEN BY PROVIDER 1846 NIHSS = 4, SEE HIS NOTE. STROKE PROTOCOL ACTIVATED, CTH AND CTA H/N DONE. NEUROLOGIST CONSULTED, RECOMMENDED TPA-THROMBOLYTICS. HTN NOTED, IV LABETALOL GIVEN PRIOR TO TPA, TPA DTN = 83MIN > 60M DUE TO INITIAL SYMPTOMS MILD, NON-DISABLING, AT 1855 SYMPTOMS WORSENING, HYPERTENSIVE REQUIRING TREATMENT. FAILED SWALLOW SCREEN AND REMAINS NPO, 11/30/22 0946, I SPOKE WITH YVES GIBBONS AND REVIEWED HER CASE, RECOMMENDING SPEECH EVALUATION, AND ORDER FOR NEUROLOGY CONSULT. I WILL CONTINUE TO FOLLOW.
--- NOTE | 2022-11-30 11:20 | PM.NEUROCN ---
History of Present Illness Data of Consult Service Date: 11/30/22 Primary Care Provider: Unknown Physician HPI Reason for consult: Stroke 67 years old woman who came to hospital yesterday after she fell and noted to have left-sided weakness. This was within an hour to of onset. ER physician discussed with me that this likely was a stroke with left hemiparesis and a decision was made to treat her with intravenous tPA and obtain further investigations. Now she was in ICU. There was no sign of any complaint of headache nausea or vomiting. Review of Systems Review of Systems: Review of system could not be done with [facility] Past Medical History Medical History (Updated 11/30/22 @ 10:12 by Patel Yu MD) Hypertension Social History Social History Household Members: Family Housing: Unknown / Unable to assess Unable to assess alcohol history related to: Unable to respond and Unknown Alcohol intake: never Patient Tobacco Use Status: Tobacco use Unknown Smoked in Last 30 Days: Yes Use of substances other than those prescribed or required for medical reasons: Unable to respond Substance Use Type: Unknown Currently Displaying Signs/Symptoms of Drug Intoxication Withdrawal: No Any prior treatment program specific to substance use: No Spiritual Healthcare Practices: UNKNOWN [facility] Practices: UNKNOWN Cultural Healthcare Practices: UNKNOWN Advance Directives: No Advance Directives Information Provided: Yes Recently lost weight without trying: Unsure Nutrition Risks: On aspiration precautions Patient : No Meds Allergies Allergy/AdvReac Type Severity Reaction Status Date / Time aspirin [ASPIRIN] Allergy Severe RASH,SWELLI Unverified 02/09/20 18:07 NG captopril Allergy Unknown Verified 07/28/13 00:00 lisinopril Allergy Unknown Verified 07/28/13 00:00 hydromorphone [From DILAUDID] AdvReac Severe AGITATION Unverified 02/09/20 18:07 DAISY inhibitors Allergy Unknown Uncoded 10/29/15 00:00 Active Medications: Current Medications Dextrose (Dextrose 50 % 25 Gm/50 Ml Syringe) 25 gm IVPUSH Q15M PRN; Protocol PRN Reason: per Hypoglycemia Standing Ord. Glucose (Glucose Gel 15 Gm Gel..Gram.) 15 gm PO Q15M PRN; Protocol PRN Reason: per Hypoglycemia Standing Ord. Dextrose/Lactated Ringer's (D5lr) 1,000 mls @ 50 mls/hr IVCONT .Q20H [facility] Last Admin: 11/30/22 11:16 Dose: 50 mls/hr Insulin Human Lispro (Insulin Lispro 100 Unit/Ml 3 Ml Vial) 0 unit SUBCUT Q6H [facility]; Protocol Last Admin: 11/30/22 07:21 Dose: Not Given Pantoprazole Sodium (Pantoprazole Sodium 40 Mg/10 Ml Vial) 40 mg IVPUSH DAILY@0630 [facility] Last Admin: 11/30/22 06:28 Dose: 40 mg Sodium Chloride (0.9 % Sodium Chloride Flush 3 Ml Syringe) 3 ml IVFLUSH QSHIFT [facility] Last Admin: 11/30/22 07:25 Dose: 3 ml Home Medications Medication Instructions Recorded Confirmed Last Taken Type Unobtainable 11/30/22 11/30/22 Unknown History Physical Exam Vital Signs: Vital Signs: Last Vital Signs Temp 98.5 F 11/30/22 08:00 Pulse 54 11/30/22 11:00 Resp 12 11/30/22 11:00 BP 162/59 H 11/30/22 11:00 Pulse Ox 98 11/30/22 11:00 O2 Del Method Room Air 11/30/22 11:00 O2 Flow Rate 2 11/30/22 01:00 BMI result Body Mass Index 26.3 Neuro: Other: she is quite drowsy but able to open her eyes. This seems to be right gaze deviation. Visual blount are difficult to determine. [id number] left hemiparesis is noted. He is able to follow simple commands and told me her last name Results Labs 11/29/22 19:47 11/30/22 05:12 Labs: Short CBC 11/29/22 Range/Units 19:47 WBC 9.7 (4.8-10.8) X10*3/uL Hgb 12.1 (12.0-16.0) g/dl Hct 37.7 (37.0-47.0) % Plt Count 232 (160-400) X10*3/uL BMP 11/29/22 11/29/22 11/30/22 19:47 23:37 05:12 Sodium 135 136 137 Potassium 5.6 H 5.2 H 4.9 Chloride 106 107 108 Carbon Dioxide 18 L 20 L 19 L BUN 53 H 50 H 50 H Creatinine 3.97 H 3.72 H 3.67 H Calcium 9.9 9.6 9.7 Cardiac Enzymes 11/29/22 Range/Units 19:47 Total Creatine Kinase 274 H (26-140) U/L Liver Function 11/29/22 11/30/22 Range/Units 23:37 05:12 Total Bilirubin 0.5 0.3 (0.0-1.0) mg/dL AST 15 16 (5-31) U/L ALT 10 9 (0-31) U/L Alkaline Phosphatase 101 93 (39-117) U/L Albumin 3.3 L 3.2 L (3.5-5.0) g/dL initial head CT did not reveal any obvious acute abnormality. Later head CT seems to suggest right middle cerebral artery area hypodensity. Also noted was occluded right ICA. Blood pressure was quite high. Assessment and Plan (1) Acute cerebrovascular accident (CVA): Status: Acute 67 years old woman with acute left hemiparesis likely from right hemispheric ischemic cerebral infarction, which might have been triggered by internal carotid artery occlusion. timing of occlusion is unclear, but due to this stroke it could be acute. On top of that her head CT reveals right middle cerebral artery area hypodensity with left hemiparesis and drowsiness. Also noted was element of subarachnoid hemorrhage, Likely due to tPA treatment. This resulted in complex situation for this patient. My suggestion is to talk to [facility] ICU and transfer her for possible neurovascular intervention for right ICA and appropriate treatment for stroke, which may also include surgical intervention. None of these treatments are available here. In the meantime hold all blood thinners and follow tPA protocol for blood pressure control. Time Spent With Patient Time: Total time managing care of this patient today ____ minutes. Procedures Date of Service Date of Service: 11/30/22
--- NOTE | 2022-11-30 13:25 | PM.EVENT ---
Event Note Date of Service: 11/30/22 Event Note: Discussed with Dr. Yu Hx of stroke s/p TPA, Head CTA with known Right ICA occlusion Case discussed with [facility] neurosurgery, MRI pending to determine whether patient may need neuro decompression if stroke is large enough Time Spent With Patient Time: Total time managing care of this patient today ____ minutes.
--- NOTE | 2022-11-30 13:59 | MHC.CM.PN ---
Attempted x 2 to meet w/pt to review d/c planning needs: pt with care providers upon 1st attempt and at MRI at 2nd: Per discussion w/ICU care team, pt may need transfer to [facility] for neurology intervention following CT of head which showed possible bleed (pt received tPA s/p CVA symptoms) Attempted to contact next of kin, pt's sister: no answer. Will defer CM assessment and d/c planning needs today and follow tomorrow when status is better known.
--- NOTE | 2022-11-30 18:31 | PM.CCN ---
Critical Care Event Note Summary Date of Service: 11/30/22 Code activated: No Narrative: Case and MRI results discussed with [facility] Stroke team by me on 11/30/2022 at 18:30. [facility] acute stroke neurologist conclusion is that patient does not require advanced neurologic monitoring. Transfer request denied. Critical Care Time (minutes): 0
--- NOTE | 2022-11-30 19:29 | PC.NURSE ---
Assumed care of patient 07:00 see Q1H neuro check documentation This RN discussed pt with stroke RN Madhavi. Plan for repeat head CT, neuro consult, swallow eval. 09:25 MD stopped normal saline 0.45% @80ml/hr fluids in pt room. Verbally stated to discontinue fluids. no void since 0200 previous shift. Bladder scan 316ml. Melendez catheter inserted 10:00 per MD, drained 325 ml punch colored urine. MD notified of urine color. 11:14 RN started new order D5LR @50ml/hr. 10:[address] head w/o contrast. Pt restless and agitated. Reassurance and reorientation provided. Pt had no speech previously. pt was able to speak on the return from CT scan and stated her name. 13:15 pt transported with RN and tech to MRI brain. Per MD give 0.5 mg versed if patient shows restlessness /agitation to obtain Brain MRI imaging for up to two doses. One 2mg/2ml vial of versed brought to MRI by RN with patient. Pt moving right hands up to face once transferred to MRI table. 13:17 0.5 mg versed given IVP, ineffective, pt moving head and right arm, removing ear protection in MRI. 13:27 0.5 mg versed given IVP, pt continues to move head and right arm, right leg. 13:30 MD called from MRI to report pt restlessness. MD gave Telephone order for 1mg versed IVP once. 13:34 administered 1mg IVP versed once. dose effective, head movement minimal. 16:09 prn labetalol given for BP 187/85. dose effective, BP decreased to 129/56. 17:30 Stroke RN contacted this RN regarding pt, RN provided updates on neuro checks. 17:35 This RN called ICU MD to report brain MRI results, discuss pt plan of care, advocated for transfer to tertiary care center. ICU MD will contact neurology MD. 18:00 Neurologist called to speak with inpatient hospitalist. Per neurologist keep patient in ICU unit pending potential transfer to higher level of care. 18:05 RN called Hospitalist provider, this RN provided hospitalist with phone number to contact neurologist. 18:30 new IV access placed for patient. 20 left wrist, 20 right AC 19:05 nurse to nurse report provided to next RN
--- NOTE | 2022-11-30 22:28 | PM.DS ---
DS: Providers Provider Date of Service: 11/30/22 Date of admission: 11/29/22 22:51 Date of discharge: 11/30/22 Primary care physician: Unknown Physician Admitting clinician: Pee Chapin Attending physician on admission: Patel Yu Consults: 11/30/22 10:59 Consult to Neurology Routine Consulting Provider: [facility] Reason for consultation: Acute CVA Has provider been notified: Yes Attending physician on discharge: Patel Yu Discharging clinician: Pee Chapin DS: Diagnosis Discharge Diagnosis (1) Acute cerebrovascular accident (CVA): Status: Acute (2) Acute kidney injury: Status: Acute (3) Urinary retention: Status: Acute (4) Hypertensive urgency: Status: Acute DS: Summary Hospital Course Hospital Course: ADMISSION/DISCHARGE DIAGNOSIS 1.Acute right-sided ischemic stroke with left-sided deficits status post tPA 2. Right internal carotid artery occlusion 3. Left-sided hemiparesis 4. Left-sided hemineglect 5. Improved hyperkalemia 6. Improved hypertension 7. Hypoalbuminemia 8. Expressive aphasia 9. Uncontrolled diabetes mellitus type 2 with hemoglobin A1c of 13.5 10. Acute versus chronic kidney injury likely volume depleted ? ALLERGIES: ?ASPIRIN (RASH AND SWELLING) DAISY INHIBITORS (REACTION UNKNOWN) DILAUDID (AGITATION) FULL CODE ? Transfer MEDICATIONS: D5 LR at 50 mL/hour Propofol drip at 20 mg per hour Labetalol 20 mg IV push Q 20 minutes p.r.n. systolic blood pressure greater than 190 D50 25 mg IV push Q 15 minutes p.r.n. hypoglycemia ? PATIENT'S FAMILY MEMBERS CONTACT NUMBERS: both aware of transfer and are aware patient consented DAUGHTER Oneyda Mendoza who lives in [place] [phone] SISTER Shelbie Briggs [phone] ? HPI / BRIEF HOSPITAL COURSE: ? ON 11/29/2022 As per ER records, the patient's transfer via EMS after she had a fall in the shower after using the commode around 1800, patients sister called the EMS.? Upon arrival patient was noticed to have a slight weakness on the left side, at 18:55 the patient was examined by the MD provider and noticed that the patient had left-sided hemiparesis and left-sided droop, left hemineglect.? At the time he your blood pressure was 184/133 with a heart rate of 92.? At 19:15 the patient was diagnosed with acute CVA she did receive labetalol for her blood pressure.? CT scan of the head showed no acute bleed or evidence of a stroke, neurology consultation with Dr. Dykes had been done and it was advised to administer tPA.? She subsequently had a CT angiogram of the head and neck which showed: ? *Occlusion of the right internal carotid artery. Intraluminal opacification is absent within the right internal carotid artery from the proximal segment of the cervical right internal carotid artery to the origin of the right ophthalmic artery. Findings are suspicious for either distal occlusion of the right internal carotid artery or dissection. A discrete dissection flap is not visualized. These findings are age indeterminate. The right ICA reconstitutes at the level of the right ophthalmic artery. The middle cerebral arteries are patent bilaterally. No gross territorial perfusion defects of the brain and qualitative assessment of angiographic IV contrast opacification of the brain (qualitative static perfusion imaging). *Mild (less than 50%) bilateral carotid bulb and internal carotid artery origin stenoses secondary to eccentric nonulcerative calcific atherosclerotic plaque. *Common origin of the brachiocephalic and left common carotid arteries. ? Her laboratory workup was overall unremarkable except her potassium was 5.6, creatinine of 3.97 but the baseline is unknown;? No white count or evidence of anemia,, random glucose 338.? Troponin 46.4 and total CK 274 with albumin 3.3. ? During my evaluation in the emergency room, patient was not responsive, significantly somnolent and only responded to sternal rub, unable to speak, unable to follow commands and it is clear that she has left-sided facial droop as well as left-sided flaccidity of the upper and lower extremities.? At this point patient is not following command, upon checking with the nurses they state that the patient is much different done when she was initially assessed, I discussed the case with ED physician again suggested a repeat head CT to rule out humeri G conversion post tPA.? Results are pending, patient was transferred to the ICU. ? In the ICU, the patient was monitored closely, post tPA protocol was followed and there was no events of hypo or hypertension through the 24 hour post tPA period. ?Further evaluation was performed by the neurologist Dr. Dykes, repeat head CT had been done this morning as described below.? Subsequently a brain MRI was also done with the following results: ? HEAD/BRAIN MRI wo Contrast IMPRESSION: Patient motion degrades image quality therefore the diagnostic accuracy of this examination is somewhat limited. There is a relatively large acute transcortical infarct involving the right cerebral hemisphere that appears to be distributed primarily within the watershed zone between the major vascular territories. There is also a small focus of susceptibility artifact located within the right occipital lobe that may represent a small focus of petechial hemorrhage. The right internal carotid artery vascular flow void is absent which coincides with findings demonstrated on the CT angiogram of the head and neck from 11/29/2022. ? Based on these, Dr. Dykes, Dr. Yu and the providers from [facility] had degree that the best thing for the patient would be to transfer her there for possible clot retrieval and neuro decompression if this stroke was large enough. ?Is worth noting that multiple attempts had been made prior to this to transfer the patient to [facility] who declined the case. ?I was asked to intubate the patient for a safe for transfer, this was done successfully without having to paralyze the patient.? Currently patient has 3 peripheral IV access. ? If anything this evening the patient appeared to be more lucid than before with the same ?left sided deficits, she is verbalizing a slightly better when I speak to her in Bangladeshi, matter of fact I was able to give me verbal consent from the patient for transfer (If am I going to get better, do it?) as well as for intubation, this was witnessed by the patient's nurse [place]. ?? ? Patient was kept on insulin sliding scale on a p.r.n. basis although her blood sugar levels were checked every 6 hours.? It is clear that the patient was diabetic but is unknown if she was being treated, her hemoglobin A1c is 13.5. Patient was not given aspirin given her known history of allergies, she was not started on Lipitor as the patient's swallowing ability a bedside was not adequate and was awaiting a speech Pathology formal evaluation. PHYSICAL EXAM AT DISCHARGE; VENT SETTINGS AC/16/350/5/24% SATTING 100%; ET TUBE 24cm AT THE LIP VS: ?134/77, 77, 16, General:? SEDATED AND INTUBATED; HOWEVER PRIOR TO INTUBATION HER EXAM WAS Skin:? Left-sided facial droop.? Intact, no lesions, edema, erythema, clubbing or cyanosis.? No ulcers. HEENT:? Head is normocephalic, atraumatic, pupils are minimally reactive to light at 3 mm bilaterally.? There is no icterus.? Unable to assess extraocular movements.? Clearly has a left-sided gaston-neglect. Mouth is dry. neck appears supple without lymphadenopathy.? I could not listen for carotid bruits for the patient is not able to hold her breath. Cardiac:? Clear S1-S2, no murmurs rubs or gallops. Pulmonary:? Clear to auscultation, no wheezes, rales or rhonchi. Abdomen:? Protuberant, positive bowel sounds in all 4 quadrants.? Soft Musculoskeletal:? Patient is moving the right upper and right lower extremity on her own went sternal rubbed, unable to follow other commands therefore I cannot assess her strength throughout her extremities.? There is no asymmetry of the legs and no edema noted. Neurologic:? As above, now able to follow basic commands, moving the right side of her body without problems, verbalizing? slow but very understandable words and appears to be comprehending well, Noticeable left-sided facial droop and left upper and lower extremity weakness unable to assess with resistance or movement upon command.? Left gaston-neglect. Vascular:? 2+ pulses upper and lower extremities distally. ? Last ?LABORATORY DATA:? White blood cells 9.7, hemoglobin 12.1, hematocrit 27.7, platelets 232.? Repeat chemistry shows shows sodium 137, potassium 4.9, chloride 108, carbon dioxide 19, anion gap 15, BUN 50, creatinine 3.67 (baseline unknown) , random glucose 170, albumin 3.2.? Triglycerides 78, cholesterol 195, LDL cholesterol 120, HDL 60. ? ? POST tpA repeat HEAD CT #1 ?IMPRESSION: Small linear focus of hyperdensity in the right occipital lobe is favored to correspond to a site of vascular enhancement due to the residual contrast material throughout the intracranial vasculature. Focal subarachnoid hemorrhage is on the differential, though felt to be less likely. Consider follow-up CT in another 6 to 12 hours. Otherwise, no acute intracranial abnormalities. ? post tpa CT HEAD #2 IMPRESSION: *Findings suspicious for minimal focal nonaneurysmal subarachnoid hemorrhage within the right occipital lobe decreased in conspicuity compared with 11/29/2022 9:55 PM. No interval acute hemorrhage or interval acute infarcts compared with 11/29/2022 9:55 PM. *Unchanged focal cortical hypodensity within the right precentral and postcentral gyri which may represent ischemic changes of indeterminate age as noted on the comparison CT angiography of the head 11/29/2022. ? This result with regards to the intracranial hemorrhage was discussed with Dr. Kenneth GUZMAN by telephone at 11/30/2022 1:11 PM and it was ascertained that the content and urgency of the report was understood at the time of direct communication. Case was discussed in detail with Dr. Yu? who is aware of all the above.? Currently we are awaiting transport for this patient who likely will be going to the above-mentioned hospital via [facility]. Total critical care time 60 minutes spent on this discharge summary, coordination of care, discussion with patient's family members were aware of all the above, providers discussion among others and separate from any procedures performed and listed. ECHO PENDING Time Spent with Patient Time attestation: Total time managing care of this patient today ___60_ minutes. Discharge coordination time: Greater than 30 minutes Quality: Safe Use of Opioids Does Pt have an Active Cancer Diagnosis on the Problem List?: No Quality: Stroke Does the patient have a stroke diagnosis?: Yes Reason for No Anti-thrombotic at DC: Adverse reaction to drug Reason for No Anticoagulant at DC: Contraindicated Reason Not Initiating IV-Tpa: N/A - Med Ordered Reason for No Anti-thrombotic by Day Two: Adverse reaction to drug Reason for No Statin at DC: Complication of medical care (unable to swallow) Physical Exam Vital Signs: Vital Signs: Last Vital Signs Temp 98.2 F 11/30/22 20:00 Pulse 80 11/30/22 22:00 Resp 16 11/30/22 22:00 BP 134/77 11/30/22 22:00 Pulse Ox 100 11/30/22 22:00 O2 Del Method Mechanical Ventil ation 11/30/22 22:00 O2 Flow Rate 2 11/30/22 01:00 FiO2 24 11/30/22 22:00 BMI result Body Mass Index 26.3 DS: Data Data Completed and Pending Labs on day of discharge: Laboratory Results - last 24 hr 11/29/22 11/29/22 11/29/22 23:24 23:34 23:37 O2 Saturation 54.0 ABG pH at Pt Temp 7.35 ABG pCO2 at Pt Temp 41 ABG pO2 at Pt Temp 36 L* ABG HCO3 23 ABG Base Excess (Actual) -2.0 VBG pH VBG pCO2 VBG pO2 VBG HCO3 VBG O2 Saturation VBG Base Excess Sodium 136 Potassium 5.2 H Chloride 107 Carbon Dioxide 20 L Anion Gap 14 BUN 50 H Creatinine 3.72 H Estim Creat Clear Calc 16.4 Estimated GFR 12 POC Glucose 219 H Random Glucose 247 H Estimat Average Glucose Hemoglobin A1c % Calcium 9.6 Total Bilirubin 0.5 AST 15 ALT 10 Alkaline Phosphatase 101 Total Protein 7.2 Albumin 3.3 L Triglycerides Cholesterol LDL Cholesterol, Calc HDL Cholesterol 11/30/22 11/30/22 11/30/22 00:31 05:08 05:12 O2 Saturation ABG pH at Pt Temp ABG pCO2 at Pt Temp ABG pO2 at Pt Temp ABG HCO3 ABG Base Excess (Actual) VBG pH 7.31 L VBG pCO2 41 VBG pO2 43 VBG HCO3 21 L VBG O2 Saturation 69.0 VBG Base Excess -4.5 Sodium 137 Potassium 4.9 Chloride 108 Carbon Dioxide 19 L Anion Gap 15 BUN 50 H Creatinine 3.67 H Estim Creat Clear Calc 14.4 Estimated GFR 12 POC Glucose 260 H Random Glucose 170 H Estimat Average Glucose Hemoglobin A1c % Calcium 9.7 Total Bilirubin 0.3 AST 16 ALT 9 Alkaline Phosphatase 93 Total Protein 7.2 Albumin 3.2 L Triglycerides 78 Cholesterol 195 LDL Cholesterol, Calc 120 HDL Cholesterol 60 11/30/22 11/30/22 11/30/22 05:12 07:20 11:39 O2 Saturation ABG pH at Pt Temp ABG pCO2 at Pt Temp ABG pO2 at Pt Temp ABG HCO3 ABG Base Excess (Actual) VBG pH VBG pCO2 VBG pO2 VBG HCO3 VBG O2 Saturation VBG Base Excess Sodium Potassium Chloride Carbon Dioxide Anion Gap BUN Creatinine Estim Creat Clear Calc Estimated GFR POC Glucose 86 106 Random Glucose Estimat Average Glucose 341 Hemoglobin A1c % 13.5 Calcium Total Bilirubin AST ALT Alkaline Phosphatase Total Protein Albumin Triglycerides Cholesterol LDL Cholesterol, Calc HDL Cholesterol 11/30/22 11/30/22 11/30/22 16:09 17:46 20:43 O2 Saturation ABG pH at Pt Temp ABG pCO2 at Pt Temp ABG pO2 at Pt Temp ABG HCO3 ABG Base Excess (Actual) VBG pH VBG pCO2 VBG pO2 VBG HCO3 VBG O2 Saturation VBG Base Excess Sodium Potassium Chloride Carbon Dioxide Anion Gap BUN Creatinine Estim Creat Clear Calc Estimated GFR POC Glucose 184 H 167 H 129 H Random Glucose Estimat Average Glucose Hemoglobin A1c % Calcium Total Bilirubin AST ALT Alkaline Phosphatase Total Protein Albumin Triglycerides Cholesterol LDL Cholesterol, Calc HDL Cholesterol Discharge Plan Discharge Anticipated Discharge Date/Time: 12/01/22 00:40 Patient Disposition: Xfer Acute Care Hospital Discharge Diagnosis: CVA Referrals: Physician,Unknown J [Primary Care Provider] - 1 Week Discharge Medications: No Action Unobtainable Discharge Orders: Discharge Order (Routine); Ordered 11/30/22 Ordered By: Pee Chapin Activity on Discharge: As tolerated Stand Alone Forms: Patient Portal Discharge page Care Plan Goals: Acute care transfer for possible transcranial pressure monitoring Health Concerns: Acute CVA Plan of Treatment: Acute care transfer for possible transcranial pressure monitoring Assessment: Lethargic, arousable, LUE paresis
--- NOTE | 2022-11-30 22:34 | W.PM.CCHP ---
Procedures Date of Service Date of Service: 12/01/22 Intubation Consent for Procedure: Elective - informed consent obtained (verbal from patient in presence of her RN dinah ) Time out performed: Yes Sedative: propofol Mg given: 150 Laryngoscope: fiber optic video scope ET tube size: 7.5 ET tube uncuffed: Yes Tube secured depth (cm): 24 Tube secured location: lips Tube placement confirmation: visualized tube passing through cords, equal breath sounds bilaterally, no breath sounds over epigastrium and confirmation by capnometry Patient tolerated procedure: well Intubation complications: none
--- NOTE | 2022-12-01 00:18 | PC.NURSE ---
Upon initial assessment on 11/30 at 1900- pt drowsy but arousable to tactile stimuli. Neurologically with mild aphasia, spontaneous movement of RUE/RLE with strong grasp, trace movement to LUE/LLE, able to follow simple commands, PERRL, +cough/gag/corneal reflex. Appropriate affect and even able state that her shea catheter was annoying . Afebrile. NSR/SB with SA and PACs, HR 40-70s. SBP WNL. Saturating well on room air. NPO. Shea in place, UOP approx 50 ml/hr of punch colored urine. Skin overall intact. At approx 2100- MD Dykes called this RN stating pt accepted for transfer to [facility]. Pt electively intubated for transfer. At approx 2145 given propofol 150 mg IVP throughout procedure. ETT #7.5, 23 cm at teeth. On AC/VC settings. OGT placed. Placement confirmed by pCXR. Report given to RN on receiving unit. [facility] to unit to transfer pt, report given to staff and belongings given to EMS crew. Pt left unit at approx 0000 on 12/01. [place] updated on pt departure time.
== END 2022-12-01 | disposition short-term general hospital (02) | DRG 62 ==
LOC: HO.ED 19:03 → HO.EDOVER 23:13 → HO.ICU 23:30
PROVIDERS: Admitting Provider Physician Assistant Medical; Emergency Provider Internal Medicine; Visit Provider Internal Medicine Pulmonary Disease
DX: I63.231 Cerebral infarction due to unspecified occlusion or stenosis of right carotid arteries (principal); G81.94 Hemiplegia, unspecified affecting left nondominant side; N17.9 Acute kidney failure, unspecified; R29.704 NIHSS score 4; R33.9 Retention of urine, unspecified; E87.5 Hyperkalemia; E11.8 Type 2 diabetes mellitus with unspecified complications; N18.9 Chronic kidney disease, unspecified; I12.9 Hypertensive chronic kidney disease with stage 1 through stage 4 chronic kidney disease, or unspecified chronic kidney disease; E88.09 Other disorders of plasma-protein metabolism, not elsewhere classified; I16.0 Hypertensive urgency
CPT/HCPCS: 36415; 36600; 70450; 70496; 70498; 70551; 71045; 80048; 80053; 80061; 82550; 82803; 82947; 83036; 84484; 85025; 85610; 85730; 93005; 94002; 99285; C1758; J2250; J2997; Q9967

== ENCOUNTER 2022-11-29 22:51 | Outpatient (BNV) | payer MEDICARE, MEDICAID, SELFPAY | END 2022-11-30 08:33 | PROVIDERS: Admitting Provider Physician Assistant Medical; Emergency Provider Internal Medicine; Visit Provider Internal Medicine Cardiovascular Disease | DX: R00.1 Bradycardia, unspecified (principal) | CPT/HCPCS: 93010 ==